=== PATIENT | female | born 1970 | race Two or more races ===

== ENCOUNTER 2018-04-14 15:52 | Inpatient (IN) | payer MEDICAID, OTHER ==
[~2018-04-14] VITALS: Ht 154.9 cm; Wt 91.9 kg
[2018-04-14 16:48] LABS: Basophils # (auto) 0 uL; Basophils % (auto) 0.3 % (0.0-2.0); Eosinophils # (auto) 0.1 uL; Eosinophils % (auto) 0.9 % (0.0-7.0); Hematocrit 32.2 % (36.0-46.0); Hemoglobin 10.7 g/dL (12.2-16.2); Lymphocytes # (auto) 0.6 uL; Lymphocytes % (auto) 7.6 % (10.0-50.0); Mean Corpuscular Hemoglobin 29.5 pg (28.0-32.0); Mean Corpuscular Hgb Conc. 33.2 g/dL (32.0-36.0); Mean Corpuscular Volume 88.9 fL (80.0-100.0); Monocytes # (auto) 0.3 uL; Neutrophils # (auto) 6.8 uL; Neutrophils % (auto) 87.2 % (37.0-80.0); Platelet Count (auto) 229 10^3/uL (140-450); Red Blood Cells 3.62 10^6/uL (4.0-5.20); Red Cell Distribution Width 17.6 % (11.8-14.3); White Blood Cell 7.8 10^3/uL (4.4-10.8)
[2018-04-14 17:01] LABS: INR 0.88 (0.9-1.15); Partial Thromboplastin Time 26.8 sec (22.64-33.71); Prothrombin Time 9.6 sec (9.37-12.3)
[2018-04-14 17:08] LABS: Alanine Aminotransferase 24 U/L (13-56); Alkaline Phosphatase 112 U/L (45-117); Anion Gap 8 (5-15); Aspartate Aminotransferase 18 U/L (15-37); BUN/Creatinine Ratio 9.7; Bilirubin, Total 0.2 mg/dL (0.2-1.0); Blood Urea Nitrogen 36 mg/dL (7-18); Carbon Dioxide 25 mmol/L (21-32); Chloride 106 mmol/L (98-107); GFR African American 17 mL/min; GFR Non-African American 14 mL/min; Glucose 98 mg/dL (74-106); Potassium 3.6 mmol/L (3.5-5.1); Sodium 139 mmol/L (136-145); Total Protein 7.5 g/dL (6.4-8.2)
[2018-04-14] MEDS ORDERED: DEXTROSE 50% SYRINGE 50 ML IV ONE (18:31)
[2018-04-14] MEDS ORDERED: DEXTROSE (50%) 50ML SYRG IV ONE (18:45)
[2018-04-14] MEDS ORDERED: DEXTROSE (50%) 50ML SYRG IV PRN (19:30)
[2018-04-14] MEDS ORDERED: NITROGLYCERIN 0.4 MG SL TAB SL PRN (19:30)
[2018-04-14] MEDS ORDERED: HYDROcodone-ACET 5/325MG TAB PO PRN (19:30)
[2018-04-14] MEDS ORDERED: MORPHINE SULFATE 4 MG/ML SYR/VIAL IV PRN ×2 (19:30)
[2018-04-14] MEDS ORDERED: HCTZ 25 MG TAB PO ONE (19:30)
[2018-04-14] MEDS ORDERED: cloNIDine HCL 0.1 MG TAB PO PRN (19:30)
[2018-04-14] MEDS ORDERED: ONDANSETRON HCL 4 MG/2 ML VIAL IV PRN (19:30)
[2018-04-14] MEDS: InsuLIN REG 1unit/0.01ml Soln (100units/ml) SC SCH (23:04)
[2018-04-14] MEDS: FAMOTIDINE 20 MG TAB PO SCH (23:12)
[2018-04-14] MEDS: hydrALAZINE HCL 25 MG TAB PO SCH (23:12)
[2018-04-14] MEDS: SODIUM CHLOR 0.9% PF (SALINE LOCK) 10ML VIAL/SYR IV SCH (23:12)
[2018-04-14] MEDS: ENALAPRIL MALEATE 2.5 MG TAB PO SCH (23:13)
[2018-04-14] MEDS: ACCU-CHEK COMFORT CURVE STRIP VI SCH (23:13)
[2018-04-15] MEDS: SODIUM CHLOR 0.9% PF (SALINE LOCK) 10ML VIAL/SYR IV SCH ×3 (06:09→22:28)
[2018-04-15] MEDS: ACCU-CHEK COMFORT CURVE STRIP VI SCH ×4 (07:00→22:25)
[2018-04-15] MEDS ORDERED: glipiZIDE 5 MG TAB PO SCH (07:00)
[2018-04-15 07:05] LABS: Albumin 2.4 g/dL (3.4-5.0); Basophils # (auto) 0 uL; Basophils % (auto) 0.5 % (0.0-2.0); Calcium 7.8 mg/dL (8.5-10.1); Eosinophils # (auto) 0.1 uL; Hematocrit 26.9 % (36.0-46.0); Hemoglobin 9.3 g/dL (12.2-16.2); Lymphocytes % (auto) 17.7 % (10.0-50.0); Mean Corpuscular Hemoglobin 30.7 pg (28.0-32.0); Mean Corpuscular Hgb Conc. 34.7 g/dL (32.0-36.0); Mean Corpuscular Volume 88.4 fL (80.0-100.0); Monocytes # (auto) 0.5 uL; Monocytes % (auto) 8.2 % (0.0-12.0); Neutrophils % (auto) 72.6 % (37.0-80.0); Nucleated Red Blood Cells % 0.1 %; Platelet Count (auto) 206 10^3/uL (140-450); Potassium 4.1 mmol/L (3.5-5.1); Red Blood Cells 3.04 10^6/uL (4.0-5.20); White Blood Cell 5.6 10^3/uL (4.4-10.8)
[2018-04-15 07:10] LABS: Bilirubin, Total 0.3 mg/dL (0.2-1.0); Total Protein 5.9 g/dL (6.4-8.2)
[2018-04-15] MEDS: InsuLIN REG 1unit/0.01ml Soln (100units/ml) SC SCH ×4 (08:15→22:00)
[2018-04-15] MEDS: Boost Glucose Control 8 Ounces PO SCH ×3 (08:25→18:46)
[2018-04-15] MEDS: hydrALAZINE HCL 25 MG TAB PO SCH ×2 (09:28→22:26)
[2018-04-15] MEDS: amLODIPine BESYLATE 5 MG TAB PO SCH (09:29)
[2018-04-15] MEDS: MULTIPLE VITAMIN TAB PO SCH (09:29)
[2018-04-15] MEDS: ENALAPRIL MALEATE 2.5 MG TAB PO SCH ×2 (09:29→22:26)
[2018-04-15] MEDS ORDERED: HCTZ 25 MG TAB PO SCH (10:00)
[2018-04-15] MEDS ORDERED: MORPHINE SULFATE 4 MG/ML SYR/VIAL IV PRN ×2 (14:45→15:00)
[2018-04-15 17:58] VITALS: BP 111/57
[2018-04-15 20:15] VITALS: BP 128/56
[2018-04-15 21:30] VITALS: BP 128/56
[2018-04-15] MEDS: ACETAMINOPHEN 325 MG TAB PO PRN (22:25)
[2018-04-15] MEDS: FAMOTIDINE 20 MG TAB PO SCH (22:26)
[2018-04-16] VITALS (7 sets, daily range): BP systolic 100–152; BP diastolic 49–82
[2018-04-16 06:06] LABS: Basophils # (auto) 0.1 uL; Basophils % (auto) 1.4 % (0.0-2.0); Eosinophils # (auto) 0.1 uL; Eosinophils % (auto) 2.7 % (0.0-7.0); Hematocrit 26.5 % (36.0-46.0); Hemoglobin 9.1 g/dL (12.2-16.2); Lymphocytes # (auto) 1.3 uL; Mean Corpuscular Hemoglobin 30.3 pg (28.0-32.0); Mean Corpuscular Hgb Conc. 34.4 g/dL (32.0-36.0); Mean Corpuscular Volume 88.1 fL (80.0-100.0); Monocytes # (auto) 0.4 uL; Monocytes % (auto) 8.2 % (0.0-12.0); Neutrophils # (auto) 2.8 uL; Neutrophils % (auto) 59.7 % (37.0-80.0); Nucleated Red Blood Cells % 0.2 %; Platelet Count (auto) 209 10^3/uL (140-450); Red Blood Cells 3.01 10^6/uL (4.0-5.20); Red Cell Distribution Width 17.4 % (11.8-14.3); White Blood Cell 4.6 10^3/uL (4.4-10.8)
[2018-04-16] MEDS: SODIUM CHLOR 0.9% PF (SALINE LOCK) 10ML VIAL/SYR IV SCH ×3 (06:13→22:35)
[2018-04-16] MEDS: ACCU-CHEK COMFORT CURVE STRIP VI SCH ×4 (06:13→22:00)
[2018-04-16 06:18] LABS: Anion Gap 8 (5-15); Blood Urea Nitrogen 39 mg/dL (7-18); Calcium 7.5 mg/dL (8.5-10.1); Carbon Dioxide 28 mmol/L (21-32); Chloride 107 mmol/L (98-107); Cholesterol 110 mg/dL (< 200); GFR African American 16 mL/min; GFR Non-African American 13 mL/min; Glucose 140 mg/dL (74-106); HDL Cholesterol 53 mg/dL (40-59); LDL Cholesterol 51 mg/dL (< 100); Magnesium 3.3 mg/dL (1.6-2.6); Sodium 143 mmol/L (136-145); Triglycerides 93 mg/dL (< 150)
[2018-04-16] MEDS: InsuLIN REG 1unit/0.01ml Soln (100units/ml) SC SCH ×4 (06:35→22:00)
[2018-04-16] MEDS: LEVOTHYROXINE SODIUM 50 MCG TAB PO SCH (06:35)
[2018-04-16] MEDS: Boost Glucose Control 8 Ounces PO SCH ×3 (08:20→18:00)
[2018-04-16] MEDS: MULTIPLE VITAMIN TAB PO SCH (10:40)
[2018-04-16] MEDS ORDERED: LEVO25TA49 PO (11:32)
[2018-04-16] MEDS: hydrALAZINE HCL 25 MG TAB PO SCH ×2 (12:30→22:38)
[2018-04-16] MEDS: amLODIPine BESYLATE 5 MG TAB PO SCH (12:30)
[2018-04-16] MEDS ORDERED: SEVE800T PO (12:45)
[2018-04-16] MEDS ORDERED: GLIP-116 PO (12:45)
[2018-04-16] MEDS ORDERED: HYDR50TA15 PO (12:45)
[2018-04-16] MEDS ORDERED: AMLO5TAB2 PO (12:45)
[2018-04-16] MEDS ORDERED: ENAL2.5T PO (12:45)
[2018-04-16] MEDS: DOCUSATE SOD 100 MG CAP PO PRN (17:14)
[2018-04-16] MEDS: FAMOTIDINE 20 MG TAB PO SCH (22:36)
[2018-04-16] MEDS: ACETAMINOPHEN 325 MG TAB PO PRN (22:39)
[2018-04-17 05:00] VITALS: BP 111/69
[2018-04-17] MEDS: SODIUM CHLOR 0.9% PF (SALINE LOCK) 10ML VIAL/SYR IV SCH (06:11)
[2018-04-17] MEDS: LEVOTHYROXINE SODIUM 50 MCG TAB PO SCH (06:11)
[2018-04-17] MEDS: ACCU-CHEK COMFORT CURVE STRIP VI SCH (06:17)
[2018-04-17] MEDS: InsuLIN REG 1unit/0.01ml Soln (100units/ml) SC SCH ×2 (07:00→11:30)
[2018-04-17 08:00] VITALS: BP 120/71
[2018-04-17] MEDS: Boost Glucose Control 8 Ounces PO SCH (08:00)
[2018-04-17] MEDS: MULTIPLE VITAMIN TAB PO SCH (10:02)
[2018-04-17] MEDS: amLODIPine BESYLATE 5 MG TAB PO SCH (10:03)
[2018-04-17] MEDS: hydrALAZINE HCL 25 MG TAB PO SCH (10:04)
[2018-04-17] MEDS: DOCUSATE SOD 100 MG CAP PO PRN (10:07)
== END 2018-04-17 12:00 | disposition home or self-care (01) | DRG 720 ==
LOC: EDBD 15:52 → ER 15:56 → OVERFLOW 15:57 → TELE-WESTW 04-15 17:39
PROVIDERS: ADMIT Internal Medicine; ATTEND Internal Medicine
DX: A41.9 Sepsis, unspecified organism (principal); J96.01 Acute respiratory failure with hypoxia; G93.41 Metabolic encephalopathy; I13.2 Hypertensive heart and chronic kidney disease with heart failure and with stage 5 chronic kidney disease, or end stage renal disease; E44.0 Moderate protein-calorie malnutrition; E83.51 Hypocalcemia; D63.8 Anemia in other chronic diseases classified elsewhere; E03.9 Hypothyroidism, unspecified; J98.11 Atelectasis; I70.8 Atherosclerosis of other arteries; N18.6 End stage renal disease; I50.9 Heart failure, unspecified; E11.21 Type 2 diabetes mellitus with diabetic nephropathy; E11.22 Type 2 diabetes mellitus with diabetic chronic kidney disease; E11.649 Type 2 diabetes mellitus with hypoglycemia without coma; Z99.2 Dependence on renal dialysis; Z82.49 Family history of ischemic heart disease and other diseases of the circulatory system; Z83.3 Family history of diabetes mellitus; Z68.38 Body mass index [BMI] 38.0-38.9, adult; Z79.899 Other long term (current) drug therapy
CPT/HCPCS: 36415; 70450; 71045; 74176; 80048; 80053; 80061; 82962; 83036; 83605; 83735; 83880; 84436; 84443; 84481; 84484; 85025; 85610; 85730; 87040; 93005; 93306; 93886; 96374; 96375; 99291; G0378; J1815; J2405